=== PATIENT | male | born 1985 | race Caucasian/White ===

== ENCOUNTER 2016-09-04 21:44 | Emergency (ER) | payer MEDICAID, OTHER ==
[2016-09-04 21:48] VITALS: RESP 18
[2016-09-04] MEDS ORDERED: ceFAZolin 2 GM in SODIUM CHLORIDE 0.9% 100 ML IVPB STA (22:38)
[2016-09-04] MEDS ORDERED: SODIUM CHLORIDE 0.9% 500 ML IV STA (22:38)
[2016-09-04 22:57] LABS: Anion Gap 11 mmol/L; Blood Urea Nitrogen 24 mg/dL (9-20); Calcium 9.8 mg/dL (8.4-10.2); Carbon Dioxide 25 mmol/L (22-30); Chloride 105 mmol/L (98-107); Glucose 108 mg/dL (74-99); Non-African American GFR(MDRD) >60 (>60 ml/min/1.73 sqM); Sodium 141 mmol/L (137-145)
[2016-09-04 23:05] LABS: Basophils # (A) 0.1 k/uL (0-0.2); Basophils % (A) 1 %; CH 29.5; CHCM 33.9; Eosinophils # (A) 0.3 k/uL (0-0.7); Eosinophils % (A) 3 %; HCT 42.2 % (39.0-53.0); HDW 2.46; Luc # (Auto) 0.23; Luc % (Auto) 3; Lymphocytes # (A) 3.5 k/uL (1.0-4.8); Lymphocytes % (A) 39 %; MCHC 33.1 g/dL (31.0-37.0); MCV 87.4 fL (80.0-100.0); Mean Platelet Volume 8.7; Monocytes # (A) 0.5 k/uL (0-1.0); Monocytes % (A) 6 %; Neutrophils # (A) 4.3 k/uL (1.3-7.7); Neutrophils % (A) 48 %; RBC 4.82 m/uL (4.30-5.90); RDW 12.8 % (11.5-15.5); WBC 8.9 k/uL (3.8-10.6); WBC (Perox) 8.84
--- NOTE | 2016-09-04 23:10 | ED ---
General Adult HPI - General Chief complaint: Wound/Laceration Stated complaint: hand injury Time Seen by Provider: 09/04/16 21:57 Source: patient, family, RN notes reviewed Mode of arrival: ambulatory Limitations: no limitations - History of Present Illness Initial comments: Complaint and history of present illness a 30-year-old male here with a laceration to his right hand through the ulnar artery volar surface. Patient reports that he is phone down on a glass top stove stovetop broke cutting his wrist. The patient wrapped a belt around the wrist and a soft cloth around the wrist but he still bled a fair amount into the plastic bags that he brought with him. - Related Data Previous Rx's Medication Instructions Recorded Cephalexin [Keflex] 500 mg PO Q6HR #20 cap 09/05/16 Hydrocodone/Acetaminophen [[place] 1 each PO Q6HR PRN #10 tab 09/05/16 5-325] Allergies Allergy/AdvReac Type Severity Reaction Status Date / Time No Known Allergies Allergy Verified 09/04/16 21:58 Review of Systems ROS Statement: Those systems with pertinent positive or pertinent negative responses have been documented in the HPI. Review of systems. No other complaints other than laceration to his right wrist. As medical problems significant for having had the injured right wrist with orthopedic surgery repair plates and screws patient reports due to that injury he had limited range of motion even before he cut his hand today. Patient denies any ALLERGIES states his immunizations including tetanus are up- to-date. Family history noncontributory. he does smoke. ROS Other: All systems not noted in ROS Statement are negative. Past Medical History Past Medical History: No Reported History History of Any Multi-Drug Resistant Organisms: None Reported Past Surgical History: Orthopedic Surgery Past Psychological History: No Psychological Hx Reported Smoking Status: Never smoker Past Alcohol Use History: Rare Past Drug Use History: Marijuana General Exam - General Exam Comments Initial Comments: General: The patient is awake and alert, in no distress, and does not appear acutely ill. Eye: Pupils are equal, round and reactive to light, extra-ocular movements are intact ; there is normal conjunctiva bilaterally. No signs of icterus. Ears, nose, mouth and throat: There are moist mucous membranes and no oral lesions. Neck: The neck is supple, there is no tenderness or JVD. Cardiovascular: There is a regular rate and rhythm. No murmur, rub or gallop is appreciated. Respiratory: Lungs are clear to auscultation, respirations are non-labored, breath sounds are equal. No wheezes, stridor, rales, or rhonchi. Gastrointestinal: Soft, non-distended, non-tender abdomen without masses or organomegaly noted. There is no rebound or guarding present. No CVA tenderness. Bowel sounds are unremarkable. Back: There is no tenderness to palpation in the midline. There is no obvious deformity. No rashes noted. Musculoskeletal: Normal ROM, no tenderness, There is no pedal edema. There is no calf tenderness or swelling. Sensation intact. Pulses equal bilaterally 2+. Neurological: Limitations: no limitations Course Vital Signs 09/04/16 21:45 Temperature 97.2 F L Pulse Rate 80 Respiratory 18 Rate Blood Pressure 132/89 O2 Sat by Pulse 100 Oximetry Medical Decision Making - Medical Decision Making Medical decision making the patient's x-ray of the right wrist shows plates and screws. There is no evidence of any metallic or radiopaque foreign body in the area of the wound. Radiologist reviewed the x-ray and his final impression is soft tissue swelling at the wrist. No radiopaque foreign body. As read by Dr. Briggs While in emergency room the patient received IV fluids 1500 ML's , he is able to drink water without difficulty. He also had 2 g of Ancef via IV. He states his last tetanus shot was within 5 years. Reexamination at 2 more occasions finds the radial artery rapidly refills the hand. He has no complaints of numbness or tingling. Rakesh test of the ulnar side of the hand is slower to refill but it appears as though ancillary vessels are still functioning. It does not appear as though the patient has any tendon or nerve damage by examination. He states his ability to flex and extend his symptoms was before he does have some limitations because of a serious wrist injury repaired with plates and screws. I discussed the case with the on-call vascular surgeon Dr Ribera. And she states inasmuch as the hand has good vascular i.e. arterial flow and no neuro deficit, thepatient can follow up in office. the patient develops any problems return emergency room immediately. Recheck of the hand finds good flow to the little finger as well as all other digits. - Lab Data Result diagrams: 09/04/16 22:00 09/04/16 22:00 Lab Results 09/04/16 09/04/16 Range/Units 22:00 22:00 WBC 8.9 (3.8-10.6) k/uL RBC 4.82 (4.30-5.90) m/uL Hgb 14.0 (13.0-17.5) gm/dL Hct 42.2 (39.0-53.0) % MCV 87.4 (80.0-100.0) fL MCH 29.0 (25.0-35.0) pg MCHC 33.1 (31.0-37.0) g/dL RDW 12.8 (11.5-15.5) % Plt Count 163 (150-450) k/uL Neutrophils % 48 % Lymphocytes % 39 % Monocytes % 6 % Eosinophils % 3 % Basophils % 1 % Neutrophils # 4.3 (1.3-7.7) k/uL Lymphocytes # 3.5 (1.0-4.8) k/uL Monocytes # 0.5 (0-1.0) k/uL Eosinophils # 0.3 (0-0.7) k/uL Basophils # 0.1 (0-0.2) k/uL Sodium 141 (137-145) mmol/L Potassium 4.0 (3.5-5.1) mmol/L Chloride 105 (98-107) mmol/L Carbon Dioxide 25 (22-30) mmol/L Anion Gap 11 mmol/L BUN 24 H (9-20) mg/dL Creatinine 1.00 (0.66-1.25) mg/dL Est GFR (MDRD) Af Amer >60 (>60 ml/min/1.73 sqM) Est GFR (MDRD) Non-Af >60 (>60 ml/min/1.73 sqM) Glucose 108 H (74-99) mg/dL Calcium 9.8 (8.4-10.2) mg/dL Disposition Clinical Impression: Laceration of right wrist Disposition: HOME SELF-CARE Condition: Good Instructions: Care For Your Stitches (ED), Laceration (ED) Additional Instructions: Use pain medication as directed take cephalexin for 5 days. Follow up with on- call vascular surgeon within the week. Return emergency room if there is any numbness, change in vascular status such as a cold white finger. Prescriptions: Cephalexin [Keflex] 500 mg PO Q6HR #20 cap Hydrocodone/Acetaminophen [[place] 5-325] 1 each PO Q6HR PRN #10 tab PRN Reason: Pain Referrals: None,Stated [Primary Care Provider] - 1-2 days Time of Disposition: 00:06
--- NOTE | 2016-09-04 23:24 | XR ---
EXAM: XR Right Wrist Complete, 3 or More Views CLINICAL HISTORY: Reason: Deep laceration ulnar aspect, R/O foreign bod TECHNIQUE: Frontal, lateral, oblique, and scaphoid views of the right wrist. COMPARISON: No relevant prior studies available. FINDINGS: Bones/joints: Distal right radial cortical plates and locking screws. Hardware is intact. No acute fracture. No dislocation. Soft tissues: Soft tissue swelling at the wrist. No radiopaque foreign body. IMPRESSION: Soft tissue swelling at the wrist. No radiopaque foreign body.
[2016-09-04] MEDS ORDERED: HYDROcodone/APAP 5-325MG 1 EACH TAB PO STA (23:54)
[2016-09-04] MEDS ORDERED: SODIUM CHLORIDE 0.9% 1,000 ML IV ONE (23:56)
[2016-09-05 00:49] VITALS: BP 151/91; PULSE 63; TEMP 98.3
[2016-09-05] MEDS ORDERED: HYDROmorphone 1 MG/ML 1 ML SYRINGE IVP STA (00:53)
--- NOTE | 2016-09-07 07:52 | CDI ---
Documentation Clarification OP Dear martin Landry MD, Please do addendum to ED report that describes the repair of the laceration wrist.please include length and depth of repair. Thank you, filipe ortega remote medical coder. if you have any questions,please contact casino manager at [phone]. [facility]
== END 2016-09-05 01:02 | disposition home or self-care (01) ==
LOC: EC 21:44
DX: S61.511A Laceration without foreign body of right wrist, initial encounter (principal); Z96.639 Presence of unspecified artificial wrist joint; W25.XXXA Contact with sharp glass, initial encounter
CPT/HCPCS: 99283; 12002; 96365; 96375; 96361; 36415; 80048; 85025; 73110; J0690; J1170